=== PATIENT | female | born 1970 | race African-American/Black ===

== ENCOUNTER 2017-12-10 21:17 | Emergency (ER) | payer BC, OTHER ==
--- NOTE | 2017-12-10 21:34 | PDOC ---
Rapid Medical Evaluation Time Seen by Provider: 12/10/17 21:30 Medical Evaluation: Allergies Allergy/AdvReac Type Severity Reaction Status Date / Time No Known Allergies Allergy Verified 02/06/16 08:42 12/10/17 21:30 Pt seen and examined, pt with c/o a rash RUQ abd radiates to the back She also had recently been treated with ABT x 7 days for a URI, she feels this is shingles and it is painful with burning symptoms Pt is not in any distress and no c/o sob, cp Will suspect shingles difficult to assess in triage for location of rash pt to be sent to [facility] for evaluation
[2017-12-10 21:47] VITALS: BP 148/98; PULSE 116; TEMP 98.4; BMI 50.3
--- NOTE | 2017-12-10 22:13 | PDOC ---
History of Present Illness - General Chief Complaint: Rash Stated Complaint: RASH Time Seen by Provider: 12/10/17 21:30 History Source: Patient Exam Limitations: No Limitations - History of Present Illness Initial Comments: 12/10/17 22:17 Has multiple recent illnesses including bronchitis with treatment of antibiotics last week. States today had some itchiness and then an acute onset wake of small grouped lesions to her right chest wall under her breast and another group similar along flank in same dermatome. Was worried about shingles Timing/Duration: reports: getting worse Severity: Yes: mild, moderate Location: reports: generalized Modifying Factors: improves with: scratching Associated Symptoms: reports: denies symptoms Past History - Travel Traveled outside of the country in the last 30 days: No Close contact w/someone who was outside of country & ill: No - Past Medical History Allergies/Adverse Reactions: Allergies Allergy/AdvReac Type Severity Reaction Status Date / Time No Known Allergies Allergy Verified 02/06/16 08:42 Home Medications: Ambulatory Orders Valacyclovir HCl [Valtrex] 1,000 mg PO TID #21 tablet 12/10/17 COPD: No - Suicide/Smoking/Psychosocial Hx Smoking History: Never smoked Have you smoked in the past 12 months: No Information on smoking cessation initiated: No Hx Alcohol Use: No Drug/Substance Use Hx: No Substance Use Type: None Review of Systems - Review of Systems Able to Perform ROS?: Yes Is the patient limited [place]kin[place] proficient: Yes Constitutional: Yes: Symptoms Reported, See HPI, Fever, Loss of Appetite, Malaise HEENTM: No: Symptoms Reported Respiratory: Yes: Symptoms reported, See HPI, Cough Musculoskeletal: Yes: Symptoms Reported Integumentary: Yes: Symptoms Reported, Rash (groups blisters to left chest wall and left flank) All Other Systems: Reviewed and Negative *Physical Exam - Vital Signs Last Vital Signs Temp Pulse Resp BP Pulse Ox 98.4 F 116 H 18 148/98 98 12/10/17 21:32 12/10/17 21:32 12/10/17 21:32 12/10/17 21:32 12/10/17 21:32 - Physical Exam General Appearance: Yes: Nourished, Appropriately Dressed, Apparent Distress, Mild Distress HEENT: positive: PAOLO, Normal ENT Inspection, TMs Normal, Pharynx Normal Neck: negative: Tender Respiratory/Chest: positive: Lungs Clear, Normal Breath Sounds Gastrointestinal/Abdominal: positive: Soft Musculoskeletal: positive: Normal Inspection Extremity: positive: Normal Capillary Refill, Normal Inspection Integumentary: positive: Pale, Other (2 patches of grouped faintly vesicular lesions 1 noted to left upper abdomen and one noted to left flank, same dermatome consistent with appearance of herpetic lesions.) 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, Fully Oriented, Alert, Normal Mood/ Affect, Normal Response, Motor Strength 5/5 Progress Note - Progress Note Progress Note: Shingles, will treat with Valtrex *DC/Admit/Observation/Transfer Diagnosis at time of Disposition: Shingles rash Qualifiers: Herpes zoster complications: without complications Qualified Code(s): B02.9 - Zoster without complications - Discharge Dispostion Disposition: HOME Condition at time of disposition: Stable Admit: No - Prescriptions Prescriptions: Valacyclovir HCl [Valtrex] 1,000 mg PO TID #21 tablet - Referrals - Patient Instructions Printed Discharge Instructions: DI for Shingles Additional Instructions: Rest, keep cool and dry- avoid strenuous activity or hot /humid environments Less hot showers, no abrasive soaps May apply Aveeno, calamine lotion, [id number] hydrocortisone creams as needed for symptoms May use Benadryl at night for antihistamine, Zyrtec/ Miranda or Claritin for daytime antihistamine use to help with itching May use Tylenol or Motrin for pain of rash Valtrex 1 g tablet every 8 hours for one week Followup with PMD in one week if no resolution Make appointment with domain architect for evaluation when possible - Post Discharge Activity
== END 2017-12-10 22:35 | disposition home or self-care (01) ==
LOC: JERFT 21:17
DX: B02.9 Zoster without complications (principal)
CPT/HCPCS: 84703; 99281-25

== ENCOUNTER 2022-10-06 12:14 | Emergency (ER) | payer BC, OTHER ==
[2022-10-06 12:24] VITALS: RESP 18; TEMP 98.4; BMI 44.6
[2022-10-06] MEDS ORDERED: KETOROLAC TROMETHAMINE 30 MG/1 ML VIAL IVPUSH ONE (14:10)
[2022-10-06] MEDS ORDERED: FAMOTIDINE 20 MG/50 ML IVPB 20 MG/50 ML MG IVPB ONE ×2 (14:11→14:36)
[2022-10-06] MEDS ORDERED: KETOROLAC TROMETHAMINE 30 MG/1 ML VIAL ONE (14:36)
[2022-10-06 14:46] LABS: BASO % 1.4 % (0-2.0); EOS % 2.6 % (0-4.5); HEMATOCRIT 43.6 % (32.4-45.2); HEMOGLOBIN 14.2 GM/dL (10.7-15.3); LYMPH % 37.3 % (8-40); MCHC 32.5 g/dl (32.0-36.0); MEAN CELL VOLUME 86.2 fl (80-96); MEAN PLT VOLUME 9.7 fl (7.5-11.1); MONO % 10.8 % (3.8-10.2); NEUT % 47.9 % (42.8-82.8); PLATELET COUNT 399 10^3/uL (134-434); RBC 5.07 M/mm3 (3.60-5.2); RDW 15.1 % (11.6-15.6); WHITE BLOOD COUNT 6.1 K/mm3 (4.0-10.0)
[2022-10-06 15:05] LABS: CALCIUM 9.5 mg/dL (8.5-10.1)
[2022-10-06 15:06] LABS: BLOOD UREA NITROGEN 7.6 mg/dL (7-18)
[2022-10-06 15:09] LABS: CREATININE 0.7 mg/dL (0.55-1.3)
[2022-10-06 15:11] LABS: BILIRUBIN,TOTAL 0.5 mg/dL (0.2-1)
[2022-10-06 18:16] VITALS: BP 127/83; PULSE 88
== END 2022-10-06 18:00 | disposition home or self-care (01) ==
LOC: JER 12:14
PROC: 3E033GC Introduction of Other Therapeutic Substance into Peripheral Vein, Percutaneous Approach (ICD-10-PCS; principal; 2022-10-06)
PROC: 3E0333Z Introduction of Anti-inflammatory into Peripheral Vein, Percutaneous Approach (ICD-10-PCS; 2022-10-06)
DX: R07.89 Other chest pain (principal)
CPT/HCPCS: 36415; 71046-TC-FY; 80053; 84484; 85025; 93005; 93010; 99285-25